=== PATIENT | female | born 1960 | race Caucasian/White ===

== ENCOUNTER 2021-04-10 15:06 | Outpatient (CLI) | payer MEDICARE, SELFPAY ==
[2021-04-10 15:22] VITALS: BP 123/67; PULSE 69; RESP 20; TEMP 36.2; O2SAT 97; BMI 42.0
[2021-04-10 17:39] VITALS: BP 119/64; PULSE 68; RESP 18; TEMP 36.6; O2SAT 93
[2021-04-10 17:40] VITALS: BP 111/60; PULSE 73; RESP 17; TEMP 36.2; O2SAT 93
== END 2021-04-10 15:07 | disposition home or self-care (01) ==
PROVIDERS: Visit Provider Physician Assistant Medical
DX: U07.1 COVID-19 (principal)
CPT/HCPCS: 96365